=== PATIENT | female | born 1960 | race American Indian/Alaskan Native ===

== ENCOUNTER 2022-05-19 08:19 | Day surgery (SDC) | payer OTHER ==
[~2022-05-19 08:19] MED LIST: SODIUM CHLORIDE 0.9% 1000 ML 1,000 ML IV SCH
--- NOTE | 2022-05-19 09:52 | Anesthesia Consultation ---
Anesthesia Consult and Med Hx Date of service: 05/19/22 - Airway Anesthetic Teeth Evaluation: Good ROM Head & Neck: Adequate Mental/Hyoid Distance: Adequate Mallampati Class: Class III Intubation Access Assessment: Possibly Difficult - Pre-Operative Health Status ASA Pre-Surgery Classification: ASA3 Proposed Anesthetic Plan: MAC - Pulmonary Hx Smoking: Yes (6cigs/day) Hx Respiratory Symptoms: No - Cardiovascular System Hx Hypertension: No (reports baseline BP 110s/60s; denies dx HTN) Hx Heart Attack/AMI: No (CHF; reports recent normal TTE and pre-procedure cardiac eval) - Central Nervous System CVA: No - Endocrine Hx Renal Disease: No Hx Liver Disease: No Hx Insulin Dependent Diabetes: No Hx Non-Insulin Dependent Diabetes: No Hx Thyroid Disease: No - Additional Comments Anesthesia Medical History Comments: Hx PONV. No signs/symptoms HF decompensation today.
--- NOTE | 2022-05-19 09:52 | Anesthesia Day of Surgery ---
Anesthesia Day of Surgery - Day of Surgery Patient Examined: Yes Patient H&P Reviewed: Yes Patient is NPO: Yes
[2022-05-19] MEDS ORDERED: propofoL 200 MG/20 ML VIAL IV ONE (10:43)
--- NOTE | 2022-05-19 11:20 | Short Stay Summary ---
Short Stay Documentation Date of service: 05/19/22 Narrative H&P: The patien presents for EGD to evaluate unexplained LUQ pain, early satiety and weight loss of 30-40 pounds. - History H&P: obtained from office - Allergies and Medications Current Medications: Allergies diphenhydramine [From Benadryl] Allergy (Verified 05/18/22 16:06) Unknown Home Medications Medication Instructions Recorded Confirmed Last Taken Type Famotidine 05/19/22 Unknown History Metoprolol 05/19/22 Unknown History Ondansetron 05/19/22 Unknown History Spironolactone 05/19/22 Unknown History Wellbutrin XL 05/19/22 05/19/22 Unknown History Active Medications Sodium Chloride (Nacl 0.9% 1000 Ml) 1,000 mls @ 50 mls/hr IV DIRECT NINA - Brief post op/procedure progress note Date of procedure: 05/19/22 Procedure: see dictation Estimated blood loss: none Pathology: list (antral biopsies for h pylori) Specimen disposition: to lab Condition: stable - Disposition Condition at discharge: Good Disposition: 01 HOME / SELF CARE / HOMELESS Short Stay Discharge Plan Activity: other (no driving for 24 hours) Weight Bearing Status: Full Weight Bearing Diet: regular Follow up with: NAYA RG MD [Primary Care Provider] - 7 Days
--- NOTE | 2022-05-19 11:23 | Operative Report ---
Operative Report Operative Report: Date of procedure: 05/19/2022 Procedure: Esophagogastroduodenoscopy with antral biopsies for H. pylori Preprocedure diagnosis: Early satiety and significant weight loss of 30 to 40 pounds. Left upper quadrant pain. Post procedure diagnosis: Minimal antral gastritis. Medium size hiatus hernia. Endoscopist: Dr. Fallon Anesthesia: Monitored anesthesia care per anesthesia department Medications: Propofol per anesthesia. Estimated blood loss: 0. After careful discussion of the nature and purpose of the procedure as well as details the technique risks benefits and alternatives consent was obtained. The patient was placed in the left lateral decubitus position and medicated per anesthesia. The tip of the Olympus video scope was passed per orum under direct vision into the esophagus and advanced into the stomach and descending duodenum. The descending duodenum the duodenal bulb and pylorus were symmetrical and normal. The scope was withdrawn into the stomach and the stomach then gently insufflated with air. The antrum revealed a few punctate erythematous lesions. No ulcers or erosions were present. Biopsies were taken for H. pylori. The stomach was further insufflated and the scope was then retroflexed and partially withdrawn. The cardia, fundus, and body of the stomach were within normal limits and easily distensible.The scope was then withdrawn in the forward position. The esophagogastric junction was at 35 cm. A 3 cm hiatus hernia was seen. The Z-line was sharp the esophageal body was normal throughout. The procedure was was well tolerated and the patient was observed in recovery. Impressions: Medium size hiatus hernia. Minimal prepyloric antral gastritis. No findings overall to explain significant weight loss, abdominal pain or early satiety. Consider cardiac cachexia in this setting as a potential cause of symptoms in absence of any significant upper endoscopy findings. Plan: Await biopsies. Electronically signed: Corey Fallon MD
--- NOTE | 2022-05-19 12:02 | Post Anesthesia Evaluation ---
- Post Anesthesia Evaluation Patient Participated: Yes Airway Patent: Yes Stable Respiratory Function: Yes Nausea/Vomiting: No Temp > 96.8F: Yes Pain Manageable: Yes Adequeate Hydration: Yes Anesthesia Complications: No
[2022-05-19 12:15] VITALS: BP 107/58
== END 2022-05-19 12:20 | disposition home or self-care (01) ==
LOC: GIO 08:19
PROVIDERS: ATTEND Internal Medicine Gastroenterology
DX: R63.4 Abnormal weight loss (principal); R10.12 Left upper quadrant pain; K44.9 Diaphragmatic hernia without obstruction or gangrene; K29.70 Gastritis, unspecified, without bleeding; F17.210 Nicotine dependence, cigarettes, uncomplicated; I50.9 Heart failure, unspecified; F32.9 Major depressive disorder, single episode, unspecified; Z79.899 Other long term (current) drug therapy; Z88.8 Allergy status to other drugs, medicaments and biological substances
CPT/HCPCS: 43239; 88305; 88342; J2704; J7030